=== PATIENT | male | born 1975 | race American Indian/Alaskan Native ===

== ENCOUNTER 2021-08-24 18:57 | Inpatient (IN) | payer SELFPAY ==
[2021-08-24 21:36] LABS: Basophils # (Auto) 0.1 K/mm3 (0.0-0.1); Basophils % (Auto) 1.2 % (0.0-1.8); Eosinophils # (Auto) 0.1 K/mm3 (0.0-0.4); Hematocrit 44.6 % (35.5-45.6); Hemoglobin 14.3 gm/dl (11.8-15.2); Lymphocytes # (Auto) 2.6 K/mm3 (1.2-5.4); Lymphocytes % (Auto) 49.1 % (13.4-35.0); Mean Corpuscular HGB Conc 32 % (32-34); Mean Corpuscular Volume 82 fl (84-94); Monocytes # (Auto) 0.5 K/mm3 (0.0-0.8); Monocytes % (Auto) 8.6 % (0.0-7.3); Platelet Count 261 K/mm3 (140-440); Red Blood Count 5.41 M/mm3 (3.65-5.03); Red Cell Distribution Width 15.2 % (13.2-15.2)
--- NOTE | 2021-08-24 21:36 | XRay Report ---
CHEST 2 VIEWS INDICATION / CLINICAL INFORMATION: chest pain. COMPARISON: None available. FINDINGS: SUPPORT DEVICES: None. HEART / MEDIASTINUM: Moderate cardiomegaly with pulmonary venous hypertension LUNGS / PLEURA: No significant pulmonary or pleural abnormality. No pneumothorax. ADDITIONAL FINDINGS: No significant additional findings. IMPRESSION: 1. Cardiomegaly with pulmonary venous hypertension. Signer Name: Reji Espinosa MD Signed: 08/24/2021 9:32 PM Workstation Name: [id number]
[2021-08-24 21:47] LABS: INR 0.95 (0.87-1.13); Partial Thromboplastin Time 29.9 Sec. (24.2-36.6)
[2021-08-24 22:00] LABS: Alanine Aminotransferase 98 units/L (7-56); Albumin 3.9 g/dL (3.9-5); BUN/Creatinine Ratio 12; Blood Urea Nitrogen 14 mg/dL (9-20); Calcium 9.1 mg/dL (8.4-10.2); Hemolysis Index 6
[2021-08-24] MEDS ORDERED: hydrALAZINE 100 MG TAB PO ONE (22:00)
[2021-08-24] MEDS ORDERED: POTASSIUM CHLORIDE ER 20 MEQ TAB PO ONE (22:21)
--- NOTE | 2021-08-24 23:19 | Emergency Department Report ---
ED General Adult HPI - General Chief complaint: High BP Stated complaint: HIGH BP PUI?: No Source: patient Mode of arrival: Ambulatory Limitations: No Limitations - History of Present Illness Initial comments: Patient is a 45-year-old -[place] male with no past medical history, and who does not go to hospitals presents to the ED with acute onset persistent generalized weakness and fatigue and significantly elevated blood pressure for the last 2 days. Patient states that he has never been on blood pressure medications and this is the first time he told that his blood pressure was elevated. Patient denies chest pain, shortness of breath, dizziness, syncope, headache, change in vision, abdominal pain, diaphoresis, nausea, vomiting, neck pain, back pain, fever and chills or cough. MD Complaint: Elevated blood pressure, generalized weakness -: Sudden, days(s) (2) Location: head, chest Severity scale (0 -10): 2 Quality: dull Consistency: constant Improves with: none Worsens with: movement Associated Symptoms: denies other symptoms, malaise, weakness. denies: confusion, chest pain, cough, diaphoresis, fever/chills, headaches, loss of appetite, nausea/vomiting, rash, seizure, shortness of breath, syncope Treatments Prior to Arrival: none - Related Data Allergies Allergy/AdvReac Type Severity Reaction Status Date / Time No Known Allergies Allergy Verified 08/24/21 21:05 ED Review of Systems ROS: Stated complaint: HIGH BP Other details as noted in HPI Constitutional: malaise, weakness. denies: chills, fever Eyes: other. denies: eye pain, eye discharge, vision change ENT: denies: ear pain, throat pain Respiratory: denies: cough, shortness of breath, wheezing Cardiovascular: other (Elevated blood pressure). denies: chest pain, palpitations Endocrine: no symptoms reported Gastrointestinal: denies: abdominal pain, nausea, vomiting, diarrhea Genitourinary: denies: urgency, dysuria Musculoskeletal: denies: back pain, joint swelling, arthralgia Skin: denies: rash, lesions Neurological: denies: headache, weakness, paresthesias Psychiatric: denies: anxiety, depression Hematological/Lymphatic: denies: easy bleeding, easy bruising ED Past Medical Hx - Past Medical History Previous Medical History?: Yes Hx Hypertension: Yes - Surgical History Past Surgical History?: No ED Physical Exam - General Limitations: No Limitations General appearance: alert, in no apparent distress, other (Hypertensive, afebrile) - Head Head exam: Present: atraumatic, normocephalic - Eye Eye exam: Present: normal appearance, PERRL, EOMI. Absent: scleral icterus, conjunctival injection, nystagmus, periorbital swelling, periorbital tenderness Pupils: Present: normal accommodation - ENT ENT exam: Present: normal exam, normal orophraynx, mucous membranes moist, TM's normal bilaterally, normal external ear exam - Neck Neck exam: Present: normal inspection, full ROM - Respiratory Respiratory exam: Present: normal lung sounds bilaterally. Absent: respiratory distress, wheezes, rhonchi, stridor, chest wall tenderness, accessory muscle use, decreased breath sounds - Cardiovascular Cardiovascular Exam: Present: regular rate, normal rhythm, normal heart sounds. Absent: systolic murmur, diastolic murmur, rubs, gallop - GI/Abdominal GI/Abdominal exam: Present: soft, normal bowel sounds. Absent: tenderness, guarding, rebound, hyperactive bowel sounds, hypoactive bowel sounds, organomegaly - Extremities Exam Extremities exam: Present: normal inspection, full ROM, normal capillary refill - Back Exam Back exam: Present: normal inspection, full ROM. Absent: tenderness, CVA tenderness (R), CVA tenderness (L), muscle spasm, vertebral tenderness - Neurological Exam Neurological exam: Present: alert, oriented X3, CN II-XII intact, normal gait, reflexes normal - Psychiatric Psychiatric exam: Present: normal affect, normal mood - Skin Skin exam: Present: warm, dry, intact, normal color. Absent: rash ED Course Vital Signs 08/24/21 08/25/21 08/25/21 19:01 01:04 03:34 Temperature 98.8 F 98.8 F Pulse Rate 55 L 51 L 98 H Respiratory 18 16 16 Rate Blood Pressure Blood Pressure 210/168 131/101 144/95 [Left] O2 Sat by Pulse 98 98 98 Oximetry 08/25/21 05:00 Temperature Pulse Rate 84 Respiratory 23 Rate Blood Pressure 152/96 Blood Pressure [Left] O2 Sat by Pulse 96 Oximetry ED Medical Decision Making - Lab Data Result diagrams: 08/24/21 21:11 08/24/21 21:11 - Radiology Data Radiology results: report reviewed, image reviewed [facility] [address] [place] [address] XRay Report Signed Patient: IMANI WU MR#: [id number] : 1975 Acct:[id number] Age/Sex: 45 / M ADM Date: 08/24/21 Loc: ED Attending Dr: Ordering Physician: DANE THOMAS Date of Service: 08/24/21 Procedure(s): XR chest routine 2V Accession Number(s): [id number] cc: DANE THOMAS Fluoro Time In Minutes: CHEST 2 VIEWS INDICATION / CLINICAL INFORMATION: chest pain. COMPARISON: None available. FINDINGS: SUPPORT DEVICES: None. HEART / MEDIASTINUM: Moderate cardiomegaly with pulmonary venous hypertension LUNGS / PLEURA: No significant pulmonary or pleural abnormality. No pneumothorax. ADDITIONAL FINDINGS: No significant additional findings. IMPRESSION: 1. Cardiomegaly with pulmonary venous hypertension. Signer Name: Reji Espinosa MD Signed: 08/24/2021 9:32 PM Workstation Name: [id number] Transcribed By: TL Dictated By: Reji Espinosa MD Electronically Authenticated By: Reji Espinosa MD Signed Date/Time: 08/24/212131 DD/ 31 TD/TT: - Medical Decision Making This is a 45-year-old -[place] male with no past medical history, and who does not go to hospitals presents to the ED with acute onset persistent generalized weakness and fatigue and significantly elevated blood pressure for the last 2 days. Patient states that he has never been on blood pressure medications and this is the first time he told that his blood pressure was elevated. In the ED, patient is alert and oriented x3 and is not in any distress. Patient is however hypertensive but afebrile. Patient's heart score is 2, and is PERC negative per Wells criteria. Patient was treated in the ED with aspirin and also given hydralazine 50 mg p.o. x1 for hypertensive emergency. Lab test results were reviewed and showed elevated troponin of 0.034. Chest x-ray showed cardiomegaly with pulmonary venous hypertension. Patient case was discussed with the hospitalist physician Dr. Hunter who admitted the patient to the hospital for observation on N-STEMI diagnosis. - Differential Diagnosis ACS; pneumonia; CHF; PE; dissection; acute renal failure Critical care attestation.: If time is entered above; I have spent that time in minutes in the direct care of this critically ill patient, excluding procedure time. ED Disposition Clinical Impression: Weakness generalized, Hypertensive emergency, NSTEMI (non-ST elevated myocardial infarction), Acute hypokalemia Disposition: 02 SHORT TERM HOSPITAL Is pt being admited?: Yes Does the pt Need Aspirin: Yes Condition: Stable Time of Disposition: 23:20
[2021-08-24] MEDS ORDERED: ONDANSETRON 4 MG/2 ML INJ IV PRN (23:21)
[2021-08-24] MEDS ORDERED: ACETAMINOPHEN 325 MG TAB PO PRN ×2 (23:21→23:51)
[2021-08-24] MEDS ORDERED: NITROGLYCERIN 0.4 MG TAB SUBL SL PRN (23:51)
[2021-08-24] MEDS ORDERED: MORPHINE 2 MG/1 ML INJ IV PRN (23:51)
[2021-08-24] MEDS ORDERED: traMADol 50 MG TAB PO PRN (23:51)
[2021-08-24] MEDS ORDERED: hydrALAZINE 20 MG/1 ML INJ IV PRN (23:53)
--- NOTE | 2021-08-24 23:59 | History and Physical Report ---
History of Present Illness Date of examination: 08/24/21 Date of admission: 08/24/21 Chief complaint: Generalized weakness High blood pressure History of present illness: 5-year-old -[place] male with no past medical history was brought to the emergency room because of acute onset persistent generalized weakness and fatigue and significantly elevated blood pressure for the last 2 days. Patient states that he has never been on blood pressure medications and this is the first time he told that his blood pressure was elevated. Patient denies chest pain, shortness of breath, dizziness, syncope, headache, change in vision, abdominal pain, diaphoresis, nausea, vomiting, neck pain, back pain, fever and chills or cough. In the emergency room patient troponin is elevated, troponin is 0.034. Patient denied any chest pain or shortness of breath. Patient blood pressure is elevated 210/168.Chest x-ray showed mild cardiomegaly med rec is not available Medications and Allergies Allergies Allergy/AdvReac Type Severity Reaction Status Date / Time No Known Allergies Allergy Verified 08/24/21 21:05 Active Meds: Active Medications Acetaminophen (Acetaminophen 325 Mg Tab) 650 mg PO Q4H PRN PRN Reason: Pain MILD(1-3)/Fever >100.5/VILLASEÑOR Acetaminophen (Acetaminophen 325 Mg Tab) 650 mg PO Q6H PRN PRN Reason: Pain, Mild (1-3) Aspirin (Aspirin 325 Mg Tab) 325 mg PO QDAY [facility] Aspirin (Aspirin 81 Mg Tab Chew) 81 mg PO QDAY [facility] Atorvastatin Calcium (Atorvastatin 40 Mg Tab) 40 mg PO QHS [facility] Heparin Sodium (Porcine) (Heparin 5,000 Unit/1 Ml Vial) 5,000 unit SUB-Q Q8HR [facility] Hydralazine HCl (Hydralazine 20 Mg/1 Ml Inj) 10 mg IV Q6H PRN PRN Reason: Blood Pressure Morphine Sulfate (Morphine 4 Mg/1 Ml Inj) 2 mg IV Q5MIN PRN PRN Reason: Chest Pain unrelieved by NTG Nitroglycerin (Nitroglycerin 0.4 Mg Tab Subl) 0.4 mg SL Q5M PRN PRN Reason: Chest Pain Ondansetron HCl (Ondansetron 4 Mg/2 Ml Inj) 4 mg IV Q8H PRN PRN Reason: Nausea And Vomiting Pantoprazole Sodium (Pantoprazole 40 Mg Tab) 40 mg PO QDAY [facility] Sodium Chloride (Sodium Chloride 0.9% 10 Ml Flush Syringe) 10 ml IV BID JULISSA Sodium Chloride (Sodium Chloride 0.9% 10 Ml Flush Syringe) 10 ml IV PRN PRN PRN Reason: LINE FLUSH Sodium Chloride (Sodium Chloride 0.9% 10 Ml Flush Syringe) 10 ml IV PRN PRN PRN Reason: LINE FLUSH Tramadol HCl (Tramadol 50 Mg Tab) 50 mg PO Q6H PRN PRN Reason: Pain, Moderate (4-6) Review of Systems All systems: negative Constitutional: fatigue, weakness Exam - Constitutional Vitals: Temp Pulse Resp BP Pulse Ox 98.8 F 55 L 18 210/168 98 08/24/21 19:01 08/24/21 19:01 08/24/21 19:01 08/24/21 19:01 08/24/21 19:01 General appearance: Present: no acute distress, well-nourished - EENT Eyes: Present: PERRL ENT: hearing intact, clear oral mucosa - Neck Neck: Present: supple, normal ROM - Respiratory Respiratory effort: normal Respiratory: bilateral: CTA - Cardiovascular Heart Sounds: Present: S1 & S2. Absent: rub, click - Extremities Extremities: pulses symmetrical, No edema Peripheral Pulses: within normal limits - Abdominal General gastrointestinal: Present: soft, non-tender, non-distended, normal bowel sounds Male genitourinary: Present: normal - Integumentary Integumentary: Present: clear, warm, dry - Musculoskeletal Musculoskeletal: gait normal, strength equal bilaterally - Psychiatric Psychiatric: appropriate mood/affect, intact judgment & insight - Neurologic Neurologic: CNII-XII intact, moves all extremities HEART Score - HEART Score Troponin: Troponin T 0.034 ng/mL (0.00-0.029) H 08/24/21 21:11 Results - Labs CBC & Chem 7: 08/24/21 21:11 08/24/21 21:11 Labs: Laboratory Last Values WBC 5.3 K/mm3 (4.5-11.0) 08/24/21 21:11 RBC 5.41 M/mm3 (3.65-5.03) H 08/24/21 21:11 Hgb 14.3 gm/dl (11.8-15.2) 08/24/21 21:11 Hct 44.6 % (35.5-45.6) 08/24/21 21:11 MCV 82 fl (84-94) L 08/24/21 21:11 MCH 26 pg (28-32) L 08/24/21 21:11 MCHC 32 % (32-34) 08/24/21 21:11 RDW 15.2 % (13.2-15.2) 08/24/21 21:11 Plt Count 261 K/mm3 (140-440) 08/24/21 21:11 Lymph % (Auto) 49.1 % (13.4-35.0) H 08/24/21 21:11 [place] % (Auto) 8.6 % (0.0-7.3) H 08/24/21 21:11 Eos % (Auto) 1.0 % (0.0-4.3) 08/24/21 21:11 Baso % (Auto) 1.2 % (0.0-1.8) 08/24/21 21:11 Lymph # (Auto) 2.6 K/mm3 (1.2-5.4) 08/24/21 21:11 [place] # (Auto) 0.5 K/mm3 (0.0-0.8) 08/24/21 21:11 Eos # (Auto) 0.1 K/mm3 (0.0-0.4) 08/24/21 21:11 Baso # (Auto) 0.1 K/mm3 (0.0-0.1) 08/24/21 21:11 Seg Neutrophils % 40.1 % (40.0-70.0) 08/24/21 21:11 Seg Neutrophils # 2.1 K/mm3 (1.8-7.7) 08/24/21 21:11 PT 13.7 Sec. (12.2-14.9) 08/24/21 21:11 INR 0.95 (0.87-1.13) 08/24/21 21:11 APTT 29.9 Sec. (24.2-36.6) 08/24/21 21:11 Sodium 142 mmol/L (137-145) 08/24/21 21:11 Potassium 3.2 mmol/L (3.6-5.0) L 08/24/21 21:11 Chloride 100.8 mmol/L (98-107) 08/24/21 21:11 Carbon Dioxide 28 mmol/L (22-30) 08/24/21 21:11 Anion Gap 16 mmol/L 08/24/21 21:11 BUN 14 mg/dL (9-20) 08/24/21 21:11 Creatinine 1.2 mg/dL (0.8-1.3) 08/24/21 21:11 Estimated GFR > 60 ml/min 08/24/21 21:11 BUN/Creatinine Ratio 12 % 08/24/21 21:11 Glucose 91 mg/dL (75-100) 08/24/21 21:11 Calcium 9.1 mg/dL (8.4-10.2) 08/24/21 21:11 Total Bilirubin 0.80 mg/dL (0.1-1.2) 08/24/21 21:11 AST 95 units/L (5-40) H 08/24/21 21:11 ALT 98 units/L (7-56) H 08/24/21 21:11 Alkaline Phosphatase 100 units/L (35-129) 08/24/21 21:11 Troponin T 0.034 ng/mL (0.00-0.029) H 08/24/21 21:11 Total Protein 6.8 g/dL (6.3-8.2) 08/24/21 21:11 Albumin 3.9 g/dL (3.9-5) 08/24/21 21:11 Albumin/Globulin Ratio 1.3 % 08/24/21 21:11 - Imaging and Cardiology Chest x-ray: report reviewed Assessment and Plan VTE prophylaxis?: Chemical Plan of care discussed with patient/family: Yes - Patient Problems (1) NSTEMI (non-ST elevated myocardial infarction) Status: Acute Plan to address problem: Admit the patient to the medical telemetry. Aspirin 81 mg p.o. daily. Lipitor 40 mg p.o. daily. We will do the serial cardiac enzymes. Echocardiogram. Cardiology consult. (2) Hypertensive emergency Status: Acute Plan to address problem: Lisinopril 20 mg p.o. daily. Hydralazine 10 mg IV every 6 hours as needed. We will monitor the blood pressure closely. Echocardiogram. Cardiology consult (3) Weakness generalized Status: Acute Plan to address problem: Multivitamin 1 tablet p.o. daily. We will continue the home medication (4) DVT prophylaxis Status: Acute Plan to address problem: Heparin 5000 units subcu every 8 hours for DVT prophylaxis. Protonix 40 mg p.o. daily for GI prophylaxis. Patient is a full code
[2021-08-25] MEDS ORDERED: LISINOPRIL 20 MG TAB PO ONE (00:30)
[2021-08-25] MEDS ORDERED: MULTIVITAMINS ,THERAPEUTIC TAB PO ONE (00:45)
[2021-08-25 02:51] LABS: Chol/HDL Ratio 3.76 %; HDL Cholesterol 42 mg/dL (40-59); LDL Cholesterol,Direct 88 mg/dL (50-130)
[2021-08-25] MEDS: HEPARIN 5,000 UNIT/1 ML VIAL SUB-Q SCH ×3 (06:03→22:13)
[2021-08-25 06:09] LABS: Basophils % (Auto) 0.5 % (0.0-1.8); Hematocrit 41.2 % (35.5-45.6); Hemoglobin 13.3 gm/dl (11.8-15.2); Lymphocytes # (Auto) 1.6 K/mm3 (1.2-5.4); Lymphocytes % (Auto) 28.8 % (13.4-35.0); Mean Corpuscular HGB Conc 32 % (32-34); Mean Corpuscular Volume 82 fl (84-94); Monocytes # (Auto) 0.3 K/mm3 (0.0-0.8); Monocytes % (Auto) 6.2 % (0.0-7.3); Platelet Count 241 K/mm3 (140-440); Red Blood Count 5.01 M/mm3 (3.65-5.03); Red Cell Distribution Width 14.9 % (13.2-15.2)
[2021-08-25 06:23] LABS: BUN/Creatinine Ratio 11; Blood Urea Nitrogen 12 mg/dL (9-20); Calcium 8.9 mg/dL (8.4-10.2); Hemolysis Index 8
[2021-08-25] MEDS ORDERED: POTASSIUM CHLORIDE ER 20 MEQ TAB PO NR (09:00)
[2021-08-25] MEDS ORDERED: PANTOPRAZOLE 40 MG TAB PO SCH (10:00)
[2021-08-25] MEDS ORDERED: ASPIRIN 325 MG TAB PO SCH (10:00)
[2021-08-25] MEDS ORDERED: LISINOPRIL 20 MG TAB PO SCH (10:00)
[2021-08-25] MEDS ORDERED: SODIUM CHLORIDE 0.9% 1000 ML 1,000 ML ONE (10:11)
[2021-08-25] MEDS: ASPIRIN 81 MG TAB CHEW PO SCH (10:17)
[2021-08-25] MEDS: POTASSIUM CHLORIDE 10 MEQ 10 MEQ/100 ML BAG IV SCH ×2 (10:18→11:56)
--- NOTE | 2021-08-25 13:06 | Consultation ---
History of Present Illness Consult date: 08/25/21 Consult reason: shortness of breath History of present illness: The patient is a 45-year-old man who presented to the emergency room with 2 weeks of shortness of breath and fatigue. He was initially evaluated in urgent care center where they noted he was markedly hypertensive, promptly referred to the emergency room. In the ER his blood pressure was 210/168. The patient reports a history of hypertension dating back to at least 7 years ago. He apparently has not reported for medical evaluation, and states that he has been in the [place] for 4 years and has not seen a doctor until the urgent care visit yesterday. He has no chest pain, no palpitations or edema. Further evaluation so far in the hospital, a chest x-ray done shows a moderate to severe cardiomegaly, with mild interstitial edema. I do not see an ECG in the patient's chart for review. There is a nonspecific borderline troponin level. An echocardiogram done today confirms a four-chamber dilated cardiomyopathy, with left ventricular ejection fraction 20 to 25%. The patient still in the emergency room, states that he feels much better after initial emergency room treatment. Past History Past Medical History: hypertension Medications and Allergies Allergies Allergy/AdvReac Type Severity Reaction Status Date / Time No Known Allergies Allergy Verified 08/24/21 21:05 Home Medications Medication Instructions Recorded Confirmed Last Taken Type No Known Home Medications [No 08/25/21 08/25/21 Unknown History Reported Home Medications] Active Meds: Active Medications Acetaminophen (Acetaminophen 325 Mg Tab) 650 mg PO Q6H PRN PRN Reason: Pain, Mild (1-3) Aspirin (Aspirin 81 Mg Tab Chew) 81 mg PO QDAY [facility] Last Admin: 08/25/21 10:17 Dose: 81 mg Documented by: Atorvastatin Calcium (Atorvastatin 40 Mg Tab) 40 mg PO QHS [facility] Heparin Sodium (Porcine) (Heparin 5,000 Unit/1 Ml Vial) 5,000 unit SUB-Q Q8HR [facility] Last Admin: 08/25/21 06:03 Dose: 5,000 unit Documented by: Hydralazine HCl (Hydralazine 20 Mg/1 Ml Inj) 10 mg IV Q6H PRN PRN Reason: Blood Pressure Last Admin: 08/25/21 12:47 Dose: 10 mg Documented by: Lisinopril (Lisinopril 20 Mg Tab) 20 mg PO QDAY [facility] Last Admin: 08/25/21 10:18 Dose: 20 mg Documented by: Morphine Sulfate (Morphine 2 Mg/1 Ml Inj) 2 mg IV Q5MIN PRN PRN Reason: Chest Pain unrelieved by NTG Nitroglycerin (Nitroglycerin 0.4 Mg Tab Subl) 0.4 mg SL Q5M PRN PRN Reason: Chest Pain Ondansetron HCl (Ondansetron 4 Mg/2 Ml Inj) 4 mg IV Q8H PRN PRN Reason: Nausea And Vomiting Pantoprazole Sodium (Pantoprazole 40 Mg Tab) 40 mg PO QDAY [facility] Last Admin: 08/25/21 10:17 Dose: 40 mg Documented by: Sodium Chloride (Sodium Chloride 0.9% 10 Ml Flush Syringe) 10 ml IV BID [facility] Last Admin: 08/25/21 10:19 Dose: 10 ml Documented by: Sodium Chloride (Sodium Chloride 0.9% 10 Ml Flush Syringe) 10 ml IV PRN PRN PRN Reason: LINE FLUSH Tramadol HCl (Tramadol 50 Mg Tab) 50 mg PO Q6H PRN PRN Reason: Pain, Moderate (4-6) Review of Systems Cardiovascular: orthopnea, shortness of breath, dyspnea on exertion, other (Fatigue), no chest pain, no palpitations, no rapid/irregular heart beat, no edema, no syncope, no lightheadedness Physical Examination Vital Signs Temp Pulse Resp BP Pulse Ox 98.8 F 55 L 18 210/168 98 08/24/21 19:01 08/24/21 19:01 08/24/21 19:01 08/24/21 19:01 08/24/21 19:01 General appearance: no acute distress HEENT: Positive: PERRL Neck: Positive: neck supple Cardiac: Positive: Reg Rate and Rhythm Lungs: Positive: Decreased Breath Sounds Neuro: Positive: Grossly Intact Abdomen: Positive: Soft Male genitourinary: Positive: deferred Skin: Positive: Clear Extremities: Absent: edema Results 08/25/21 05:58 08/25/21 05:58 Cardiac Enzymes 08/24/21 Range/Units 21:11 AST 95 H (5-40) units/L Coagulation 08/24/21 Range/Units 21:11 PT 13.7 (12.2-14.9) Sec. INR 0.95 (0.87-1.13) APTT 29.9 (24.2-36.6) Sec. Lipids 08/24/21 Range/Units 21:11 Triglycerides 123 (2-149) mg/dL Cholesterol 158 (50-199) mg/dL HDL Cholesterol 42 (40-59) mg/dL Cholesterol/HDL Ratio 3.76 % CBC 08/24/21 08/25/21 Range/Units 21:11 05:58 WBC 5.3 5.5 (4.5-11.0) K/mm3 RBC 5.41 H 5.01 (3.65-5.03) M/mm3 Hgb 14.3 13.3 (11.8-15.2) gm/dl Hct 44.6 41.2 (35.5-45.6) % Plt Count 261 241 (140-440) K/mm3 Lymph # (Auto) 2.6 1.6 (1.2-5.4) K/mm3 [place] # (Auto) 0.5 0.3 (0.0-0.8) K/mm3 Eos # (Auto) 0.1 0.0 (0.0-0.4) K/mm3 Baso # (Auto) 0.1 0.0 (0.0-0.1) K/mm3 Comprehensive Metabolic Panel 08/24/21 08/25/21 Range/Units 21:11 05:58 Sodium 142 145 (137-145) mmol/L Potassium 3.2 L 3.2 L (3.6-5.0) mmol/L Chloride 100.8 107.2 H (98-107) mmol/L Carbon Dioxide 28 27 (22-30) mmol/L BUN 14 12 (9-20) mg/dL Creatinine 1.2 1.1 (0.8-1.3) mg/dL Glucose 91 99 (75-100) mg/dL Calcium 9.1 8.9 (8.4-10.2) mg/dL AST 95 H (5-40) units/L ALT 98 H (7-56) units/L Alkaline Phosphatase 100 (35-129) units/L Total Protein 6.8 (6.3-8.2) g/dL Albumin 3.9 (3.9-5) g/dL EKG interpretations - Telemetry EKG Rhythm: Sinus Rhythm Assessment and Plan - Patient Problems (1) Acute systolic (congestive) heart failure Current Visit: Yes Status: Acute Plan to address problem: Patient presented with symptoms of fluid overload and systolic heart failure over a 2-week period. There is massive cardiomegaly on the chest x-ray, and echocardiogram shows four-chamber dilated cardiomyopathy, ejection fraction 20 to 25%. The systolic heart failure is a new diagnosis. Etiology is uncertain, but patient has longstanding uncontrolled hypertension for which he was noncompliant with medical management. We will treat with diuretics, afterload agents, beta-blockers, spironolactone and baby aspirin. Further cardiac evaluation will depend on clinical course. (2) Uncontrolled hypertension Current Visit: Yes Status: Acute Plan to address problem: Patient admits to a history of hypertension dating back to 7 years, but has never presented for medical assessment and management, on this presentation the blood pressure was 210/168. We will make recommendations for aggressive management of hypertension.
--- NOTE | 2021-08-25 13:26 | Event Note ---
Date: 08/25/21 Patient apparently did not have an ECG performed on presentation, I will order a twelve-lead ECG at this time.
[2021-08-25] MEDS: NIFEdipine XL 60 MG TAB PO SCH (15:36)
[2021-08-25] MEDS: FUROSEMIDE 40 MG/4 ML INJ IV SCH (15:36)
[2021-08-25] MEDS: carvediloL 6.25 MG TAB PO SCH ×2 (15:36→22:13)
[2021-08-25] MEDS: LISINOPRIL 40 MG TAB PO SCH (15:36)
[2021-08-25] MEDS: SPIRONOLACTONE 25 MG TAB PO SCH (15:37)
--- NOTE | 2021-08-25 17:38 | Progress Note ---
Assessment and Plan Assessment and plan: Patient is a 45-year-old male with past medical history of hypertension (nonadherent with medications) who presented with acute onset generalized weakness, fatigue, and significantly elevated blood pressures for approximately 48 hours was found to be secondary to hypertensive emergency complicated by NSTEMI in the setting of acute systolic heart failure. #Hypertensive emergency #NSTEMI #Acute systolic heart failure #Moderate pulmonary hypertension -Status post ASA 325 mg in ED -Troponin 0.034 -->0.022 -Cardiology consulted; appreciate recs -TTE revealing EF 25-30% LV is moderately dilated and LV systolic function is severely decreased with moderate concentric LV hypertrophy. Right ventricle is mild to moderately dilated, and right ventricle is mildly hypokinetic. Left atrium is severely dilated, and right atrium is moderately dilated. There is mild to moderate tricuspid regurg with moderate to severe pulmonary hypertension. The RVSP is 55-60 mmHg. -Starting the following for medical management: ASA 81 mg daily, Lipitor 40 mg daily, Coreg 6.25 mg twice daily, IV Lasix 40 mg daily, lisinopril 40 mg daily, nifedipine 60 mg daily, spironolactone 25 mg daily -Consulting pulmonology for new pulmonary hypertension diagnosis; recs pending -Continue strict I's and O's, daily weights, fluid restriction, and cardiac diet. #Dietary counseling #Exercise counseling #Medication compliance counseling -Counseled patient about importance of decreasing salt intake, incorporating fresh fruits, vegetables, and exercise as tolerated. Patient expressed understanding -Time: +15 minutes #Advanced care planning -Disease education conducted, care plan discussed, diagnoses discussed, prognosis discussed, and patient acknowledges understanding with care plan -Time: +30 minutes Disposition Plan: Continue medical management Total Time Spent with Patient (Minutes): 45 minutes History Interval history: No acute events overnight. Hospitalist Physical - Constitutional Vitals: Temp Pulse Resp BP Pulse Ox 98.8 F 103 H 14 177/120 97 08/25/21 03:34 08/25/21 12:47 08/25/21 12:00 08/25/21 12:47 08/25/21 12:00 General appearance: Present: no acute distress, well-nourished - EENT Eyes: Present: PERRL, EOM intact ENT: hearing intact, clear oral mucosa, dentition normal - Neck Neck: Present: supple, normal ROM - Respiratory Respiratory effort: normal Respiratory: bilateral: diminished - Cardiovascular Rhythm: regular Heart Sounds: Present: S1 & S2 - Extremities Extremities: no ischemia, pulses intact, pulses symmetrical, No edema, normal temperature Peripheral Pulses: within normal limits - Abdominal General gastrointestinal: soft, non-tender, non-distended, normal bowel sounds - Integumentary Integumentary: Present: clear, warm, dry - Psychiatric Psychiatric: appropriate mood/affect, intact judgment & insight, memory intact, cooperative - Neurologic Neurologic: CNII-XII intact, moves all extremities - Allied Health Allied health notes reviewed: nursing HEART Score - HEART Score Troponin: Troponin T 0.022 ng/mL (0.00-0.029) 08/25/21 05:51 Results - Labs CBC & Chem 7: 08/25/21 05:58 08/25/21 05:58 Labs: Laboratory Last Values WBC 5.5 K/mm3 (4.5-11.0) 08/25/21 05:58 RBC 5.01 M/mm3 (3.65-5.03) 08/25/21 05:58 Hgb 13.3 gm/dl (11.8-15.2) 08/25/21 05:58 Hct 41.2 % (35.5-45.6) 08/25/21 05:58 MCV 82 fl (84-94) L 08/25/21 05:58 MCH 27 pg (28-32) L 08/25/21 05:58 MCHC 32 % (32-34) 08/25/21 05:58 RDW 14.9 % (13.2-15.2) 08/25/21 05:58 Plt Count 241 K/mm3 (140-440) 08/25/21 05:58 Lymph % (Auto) 28.8 % (13.4-35.0) 08/25/21 05:58 [place] % (Auto) 6.2 % (0.0-7.3) 08/25/21 05:58 Eos % (Auto) 0.0 % (0.0-4.3) 08/25/21 05:58 Baso % (Auto) 0.5 % (0.0-1.8) 08/25/21 05:58 Lymph # (Auto) 1.6 K/mm3 (1.2-5.4) 08/25/21 05:58 [place] # (Auto) 0.3 K/mm3 (0.0-0.8) 08/25/21 05:58 Eos # (Auto) 0.0 K/mm3 (0.0-0.4) 08/25/21 05:58 Baso # (Auto) 0.0 K/mm3 (0.0-0.1) 08/25/21 05:58 Seg Neutrophils % 64.5 % (40.0-70.0) 08/25/21 05:58 Seg Neutrophils # 3.6 K/mm3 (1.8-7.7) 08/25/21 05:58 PT 13.7 Sec. (12.2-14.9) 08/24/21 21:11 INR 0.95 (0.87-1.13) 08/24/21 21:11 APTT 29.9 Sec. (24.2-36.6) 08/24/21 21:11 Sodium 145 mmol/L (137-145) 08/25/21 05:58 Potassium 3.2 mmol/L (3.6-5.0) L 08/25/21 05:58 Chloride 107.2 mmol/L (98-107) H 08/25/21 05:58 Carbon Dioxide 27 mmol/L (22-30) 08/25/21 05:58 Anion Gap 14 mmol/L 08/25/21 05:58 BUN 12 mg/dL (9-20) 08/25/21 05:58 Creatinine 1.1 mg/dL (0.8-1.3) 08/25/21 05:58 Estimated GFR > 60 ml/min 08/25/21 05:58 BUN/Creatinine Ratio 11 % 08/25/21 05:58 Glucose 99 mg/dL (75-100) 08/25/21 05:58 Calcium 8.9 mg/dL (8.4-10.2) 08/25/21 05:58 Total Bilirubin 0.80 mg/dL (0.1-1.2) 08/24/21 21:11 AST 95 units/L (5-40) H 08/24/21 21:11 ALT 98 units/L (7-56) H 08/24/21 21:11 Alkaline Phosphatase 100 units/L (35-129) 08/24/21 21:11 Troponin T 0.022 ng/mL (0.00-0.029) 08/25/21 05:51 Total Protein 6.8 g/dL (6.3-8.2) 08/24/21 21:11 Albumin 3.9 g/dL (3.9-5) 08/24/21 21:11 Albumin/Globulin Ratio 1.3 % 08/24/21 21:11 Triglycerides 123 mg/dL (2-149) 08/24/21 21:11 Cholesterol 158 mg/dL (50-199) 08/24/21 21:11 LDL Cholesterol Direct 88 mg/dL (50-130) 08/24/21 21:11 HDL Cholesterol 42 mg/dL (40-59) 08/24/21 21:11 Cholesterol/HDL Ratio 3.76 % 08/24/21 21:11 Active Medications - Current Medications Current Medications: Generic Name Dose Route Start Last Admin Trade Name Freq PRN Reason Stop Dose Admin Acetaminophen 650 mg 08/24/21 23:51 Acetaminophen 325 Mg Tab PO Q6H PRN Pain, Mild (1-3) Aspirin 81 mg 08/25/21 10:00 08/25/21 10:17 Aspirin 81 Mg Tab Chew PO 81 mg QDAY JULISSA Administration Atorvastatin Calcium 40 mg 08/25/21 22:00 Atorvastatin 40 Mg Tab PO QHS JULISSA Carvedilol 6.25 mg 08/25/21 14:00 08/25/21 15:36 Carvedilol 6.25 Mg Tab PO 6.25 mg BID JULISSA Administration Furosemide 40 mg 08/25/21 14:00 08/25/21 15:36 Furosemide 40 Mg/4 Ml Inj IV 40 mg QDAY JULISSA Administration Heparin Sodium (Porcine) 5,000 unit 08/25/21 06:00 08/25/21 15:36 Heparin 5,000 Unit/1 Ml Vial SUB-Q 5,000 unit Q8HR JULISSA Administration Hydralazine HCl 10 mg 08/24/21 23:53 08/25/21 12:47 Hydralazine 20 Mg/1 Ml Inj IV 10 mg Q6H PRN Administration Blood Pressure Lisinopril 40 mg 08/25/21 14:00 08/25/21 15:36 Lisinopril 40 Mg Tab PO 40 mg QDAY JULISSA Administration Morphine Sulfate 2 mg 08/24/21 23:51 Morphine 2 Mg/1 Ml Inj IV Q5MIN PRN Chest Pain unrelieved by NTG Nifedipine 60 mg 08/25/21 14:00 08/25/21 15:36 Nifedipine Xl 60 Mg Tab PO 60 mg QDAY JULISSA Administration Nitroglycerin 0.4 mg 08/24/21 23:51 Nitroglycerin 0.4 Mg Tab Subl SL Q5M PRN Chest Pain Ondansetron HCl 4 mg 08/24/21 23:21 Ondansetron 4 Mg/2 Ml Inj IV Q8H PRN Nausea And Vomiting Sodium Chloride 10 ml 08/24/21 23:45 08/25/21 10:19 Sodium Chloride 0.9% 10 Ml Flush Syringe IV 10 ml BID JULISSA Administration Sodium Chloride 10 ml 08/24/21 23:21 Sodium Chloride 0.9% 10 Ml Flush Syringe IV PRN PRN LINE FLUSH Spironolactone 25 mg 08/25/21 14:00 08/25/21 15:37 Spironolactone 25 Mg Tab PO 25 mg QDAY JULISSA Administration Tramadol HCl 50 mg 08/24/21 23:51 Tramadol 50 Mg Tab PO Q6H PRN Pain, Moderate (4-6)
[2021-08-26] MEDS: HEPARIN 5,000 UNIT/1 ML VIAL SUB-Q SCH ×3 (05:46→21:17)
[2021-08-26 06:03] LABS: BUN/Creatinine Ratio 13; Blood Urea Nitrogen 14 mg/dL (9-20); Calcium 9.2 mg/dL (8.4-10.2); Hemolysis Index 101
--- NOTE | 2021-08-26 07:54 | Progress Note ---
Assessment and Plan Acute systolic heart failure echo shows four-chamber dilated cardiomyopathy, ejection fraction 20-25%. Cardiomyopathy, uncertain etiology Longstanding uncontrolled hypertension Noncompliant with medical management Recommendations: Continue guideline directed medical therapy for systolic heart failure. Further cardiac evaluation will depend on clinical course. Subjective Date of service: 08/26/21 Interval history: Patient reports his breathing is better. BP has improved, systolic at 134. Objective Vital Signs Temp Pulse Resp BP Pulse Ox 08/26/21 04:50 98.4 F 80 18 134/100 96 08/25/21 23:00 126/83 08/25/21 22:50 145/93 98 08/25/21 22:49 145/93 08/25/21 22:13 84 143/106 08/25/21 20:47 99.8 F H 92 H 18 149/99 96 08/25/21 20:35 98 08/25/21 20:21 80 26 H 141/106 95 08/25/21 20:00 84 27 H 141/106 100 08/25/21 19:31 82 26 H 127/103 95 08/25/21 19:21 92 H 15 127/103 96 08/25/21 19:11 76 17 127/103 91 08/25/21 19:00 86 28 H 127/103 92 08/25/21 18:51 82 29 H 133/94 93 08/25/21 18:41 83 22 133/94 92 08/25/21 18:31 81 20 133/94 94 08/25/21 18:21 90 29 H 133/94 96 08/25/21 18:11 88 27 H 133/94 94 08/25/21 18:00 90 26 H 133/94 97 08/25/21 17:01 87 15 177/120 96 08/25/21 14:00 92 H 23 177/120 98 08/25/21 13:00 108 H 29 H 175/123 98 08/25/21 12:47 103 H 177/120 08/25/21 12:00 103 H 14 175/123 97 08/25/21 11:00 92 H 16 185/129 98 08/25/21 10:30 93 H 20 187/117 95 08/25/21 09:00 93 H 19 189/131 96 08/25/21 08:30 83 29 H 160/109 98 - Physical Examination General: No Apparent Distress HEENT: Positive: PERRL Neck: Positive: neck supple Cardiac: Positive: Reg Rate and Rhythm Lungs: Positive: Normal Breath Sounds Neuro: Positive: Grossly Intact Abdomen: Positive: Soft Skin: Positive: Clear Extremities: Absent: edema - Labs and Meds Comprehensive Metabolic Panel 08/26/21 Range/Units 04:16 Sodium 145 (137-145) mmol/L Potassium 3.7 (3.6-5.0) mmol/L Chloride 107.5 H (98-107) mmol/L Carbon Dioxide 23 (22-30) mmol/L BUN 14 (9-20) mg/dL Creatinine 1.1 (0.8-1.3) mg/dL Glucose 86 (75-100) mg/dL Calcium 9.2 (8.4-10.2) mg/dL
--- NOTE | 2021-08-26 08:41 | Electrocardiograph Report ---
[facility] Test Date: 2021-08-25 Test Time: 13:33:56 Pat Name: IMANI WU Department: Room: A460 Gender: M Head Sampler: NITA : 1975 Requested By: LISA KLEIN Order Number: [id number] Reading MD: Bernabe Tello Measurements Intervals [place] Rate: 99 P: 18 [place]: 164 QRS: -18 QRSD: 98 T: 91 QT: 358 QTc: 461 Interpretive Statements Sinus rhythm Left atrial enlargement LVH with secondary repolarization abnormality No previous ECG available for comparison Electronically Signed On 08-26-2021 8:41:04 EST by Bernabe Tello
[2021-08-26] MEDS: LISINOPRIL 40 MG TAB PO SCH (09:34)
[2021-08-26] MEDS: NIFEdipine XL 60 MG TAB PO SCH (09:34)
[2021-08-26] MEDS: FUROSEMIDE 40 MG/4 ML INJ IV SCH (09:34)
[2021-08-26] MEDS: SPIRONOLACTONE 25 MG TAB PO SCH (09:34)
[2021-08-26] MEDS: carvediloL 6.25 MG TAB PO SCH ×2 (09:34→21:16)
[2021-08-26] MEDS: ASPIRIN 81 MG TAB CHEW PO SCH (09:34)
[2021-08-26 10:08] LABS: Hematocrit 47.7 % (35.5-45.6); Hemoglobin 15.1 gm/dl (11.8-15.2); Mean Corpuscular HGB Conc 32 % (32-34); Mean Corpuscular Volume 84 fl (84-94); Platelet Count 301 K/mm3 (140-440); Red Blood Count 5.69 M/mm3 (3.65-5.03); Red Cell Distribution Width 15.1 % (13.2-15.2)
--- NOTE | 2021-08-26 14:24 | Progress Note ---
Assessment and Plan Assessment and plan: Patient is a 45-year-old male with past medical history of hypertension (nonadherent with medications) who presented with acute onset generalized weakness, fatigue, and significantly elevated blood pressures for approximately 48 hours was found to be secondary to hypertensive emergency complicated by NSTEMI in the setting of acute systolic heart failure. #Hypertensive emergency-resolved #NSTEMI-resolved #Acute systolic heart failure #Moderate pulmonary hypertension -Status post ASA 325 mg in ED -Troponin 0.034 -->0.022 -Cardiology consulted; appreciate recs -TTE revealing EF 25-30% LV is moderately dilated and LV systolic function is severely decreased with moderate concentric LV hypertrophy. Right ventricle is mild to moderately dilated, and right ventricle is mildly hypokinetic. Left atrium is severely dilated, and right atrium is moderately dilated. There is mild to moderate tricuspid regurg with moderate to severe pulmonary hypertension. The RVSP is 55-60 mmHg. -Starting the following for medical management: ASA 81 mg daily, Lipitor 40 mg daily, Coreg 6.25 mg twice daily, IV Lasix 40 mg daily, lisinopril 40 mg daily, nifedipine 60 mg daily, spironolactone 25 mg daily -Consulting pulmonology for new pulmonary hypertension diagnosis; recs pending -Pending stress test in the morning. N.p.o. at midnight -Continue strict I's and O's, daily weights, fluid restriction, and cardiac diet. #Dietary counseling #Exercise counseling #Medication compliance counseling -Counseled patient about importance of decreasing salt intake, incorporating fresh fruits, vegetables, and exercise as tolerated. Patient expressed understanding -Time: +15 minutes #Advanced care planning -Disease education conducted, care plan discussed, diagnoses discussed, prognosis discussed, and patient acknowledges understanding with care plan -Time: +30 minutes Disposition Plan: Continue medical management Total Time Spent with Patient (Minutes): 45 minutes History Interval history: No acute events over night. The patient denies fevers, chills, nausea, vomiting, abdominal pain, chest pain/pressure, shortness of breath, urinary symptoms, weakness, or confusion. Hospitalist Physical - Constitutional Vitals: Temp Pulse Resp BP Pulse Ox 98.3 F 83 19 144/105 98 08/26/21 12:00 08/26/21 12:00 08/26/21 12:00 08/26/21 12:00 08/26/21 12:00 General appearance: Present: no acute distress, well-nourished - EENT Eyes: Present: PERRL, EOM intact ENT: hearing intact, clear oral mucosa, dentition normal - Neck Neck: Present: supple, normal ROM - Respiratory Respiratory effort: normal Respiratory: bilateral: CTA - Cardiovascular Rhythm: regular Heart Sounds: Present: S1 & S2 - Extremities Extremities: no ischemia, pulses intact, pulses symmetrical, No edema, normal temperature, normal color Peripheral Pulses: within normal limits - Abdominal General gastrointestinal: soft, non-tender, non-distended, normal bowel sounds - Integumentary Integumentary: Present: clear, warm, dry - Psychiatric Psychiatric: appropriate mood/affect, intact judgment & insight, memory intact, cooperative - Neurologic Neurologic: CNII-XII intact, moves all extremities - Allied Health Allied health notes reviewed: nursing HEART Score - HEART Score Troponin: Troponin T 0.022 ng/mL (0.00-0.029) 08/25/21 05:51 Results - Labs CBC & Chem 7: 08/26/21 09:41 08/26/21 04:16 Labs: Laboratory Last Values WBC 4.0 K/mm3 (4.5-11.0) L 08/26/21 09:41 RBC 5.69 M/mm3 (3.65-5.03) H 08/26/21 09:41 Hgb 15.1 gm/dl (11.8-15.2) 08/26/21 09:41 Hct 47.7 % (35.5-45.6) H D 08/26/21 09:41 MCV 84 fl (84-94) 08/26/21 09:41 MCH 27 pg (28-32) L 08/26/21 09:41 MCHC 32 % (32-34) 08/26/21 09:41 RDW 15.1 % (13.2-15.2) 08/26/21 09:41 Plt Count 301 K/mm3 (140-440) 08/26/21 09:41 Lymph % (Auto) [place] Blancher 08/26/21 09:41 [place] % (Auto) Almond Blancher 08/26/21 09:41 Eos % (Auto) [place] Blancher 08/26/21 09:41 Baso % (Auto) [place] Blancher 08/26/21 09:41 Lymph # (Auto) [place] Blancher 08/26/21 09:41 [place] # (Auto) Almond Blancher 08/26/21 09:41 Eos # (Auto) [place] Blancher 08/26/21 09:41 Baso # (Auto) [place] Blancher 08/26/21 09:41 Seg Neutrophils % [place]mond Blancher 08/26/21 09:41 Seg Neutrophils # Almond Blancher 08/26/21 09:41 PT 13.7 Sec. (12.2-14.9) 08/24/21 21:11 INR 0.95 (0.87-1.13) 08/24/21 21:11 APTT 29.9 Sec. (24.2-36.6) 08/24/21 21:11 Sodium 145 mmol/L (137-145) 08/26/21 04:16 Potassium 3.7 mmol/L (3.6-5.0) 08/26/21 04:16 Chloride 107.5 mmol/L (98-107) H 08/26/21 04:16 Carbon Dioxide 23 mmol/L (22-30) 08/26/21 04:16 Anion Gap 18 mmol/L 08/26/21 04:16 BUN 14 mg/dL (9-20) 08/26/21 04:16 Creatinine 1.1 mg/dL (0.8-1.3) 08/26/21 04:16 Estimated GFR > 60 ml/min 08/26/21 04:16 BUN/Creatinine Ratio 13 % 08/26/21 04:16 Glucose 86 mg/dL (75-100) 08/26/21 04:16 Hemoglobin A1c 5.5 % (4-6) 08/26/21 09:41 Calcium 9.2 mg/dL (8.4-10.2) 08/26/21 04:16 Phosphorus 2.70 mg/dL (2.5-4.5) 08/26/21 04:16 Magnesium 2.40 mg/dL (1.7-2.3) H 08/26/21 04:16 Total Bilirubin 0.80 mg/dL (0.1-1.2) 08/24/21 21:11 AST 95 units/L (5-40) H 08/24/21 21:11 ALT 98 units/L (7-56) H 08/24/21 21:11 Alkaline Phosphatase 100 units/L (35-129) 08/24/21 21:11 Troponin T 0.022 ng/mL (0.00-0.029) 08/25/21 05:51 Total Protein 6.8 g/dL (6.3-8.2) 08/24/21 21:11 Albumin 3.9 g/dL (3.9-5) 08/24/21 21:11 Albumin/Globulin Ratio 1.3 % 08/24/21 21:11 Triglycerides 123 mg/dL (2-149) 08/24/21 21:11 Cholesterol 158 mg/dL (50-199) 08/24/21 21:11 LDL Cholesterol Direct 88 mg/dL (50-130) 08/24/21 21:11 HDL Cholesterol 42 mg/dL (40-59) 08/24/21 21:11 Cholesterol/HDL Ratio 3.76 % 08/24/21 21:11 Strickland/IV: Voiding Method Toilet Active Medications - Current Medications Current Medications: Generic Name Dose Route Start Last Admin Trade Name Freq PRN Reason Stop Dose Admin Acetaminophen 650 mg 08/24/21 23:51 Acetaminophen 325 Mg Tab PO Q6H PRN Pain, Mild (1-3) Aspirin 81 mg 08/25/21 10:00 08/26/21 09:34 Aspirin 81 Mg Tab Chew PO 81 mg QDAY JULISSA Administration Atorvastatin Calcium 40 mg 08/25/21 22:00 08/25/21 22:14 Atorvastatin 40 Mg Tab PO 40 mg QHS JULISSA Administration Carvedilol 6.25 mg 08/25/21 14:00 08/26/21 09:34 Carvedilol 6.25 Mg Tab PO 6.25 mg BID JULISSA Administration Furosemide 40 mg 08/25/21 14:00 08/26/21 09:34 Furosemide 40 Mg/4 Ml Inj IV 40 mg QDAY JULISSA Administration Heparin Sodium (Porcine) 5,000 unit 08/25/21 06:00 08/26/21 13:09 Heparin 5,000 Unit/1 Ml Vial SUB-Q 5,000 unit Q8HR JULISSA Administration Hydralazine HCl 10 mg 08/24/21 23:53 08/25/21 12:47 Hydralazine 20 Mg/1 Ml Inj IV 10 mg Q6H PRN Administration Blood Pressure Lisinopril 40 mg 08/25/21 14:00 08/26/21 09:34 Lisinopril 40 Mg Tab PO 40 mg QDAY JULISSA Administration Morphine Sulfate 2 mg 08/24/21 23:51 Morphine 2 Mg/1 Ml Inj IV Q5MIN PRN Chest Pain unrelieved by NTG Nifedipine 60 mg 08/25/21 14:00 08/26/21 09:34 Nifedipine Xl 60 Mg Tab PO 60 mg QDAY JULISSA Administration Nitroglycerin 0.4 mg 08/24/21 23:51 Nitroglycerin 0.4 Mg Tab Subl SL Q5M PRN Chest Pain Ondansetron HCl 4 mg 08/24/21 23:21 Ondansetron 4 Mg/2 Ml Inj IV Q8H PRN Nausea And Vomiting Sodium Chloride 10 ml 08/24/21 23:45 08/26/21 09:35 Sodium Chloride 0.9% 10 Ml Flush Syringe IV 10 ml BID JULISSA Administration Sodium Chloride 10 ml 08/24/21 23:21 Sodium Chloride 0.9% 10 Ml Flush Syringe IV PRN PRN LINE FLUSH Spironolactone 25 mg 08/25/21 14:00 08/26/21 09:34 Spironolactone 25 Mg Tab PO 25 mg QDAY JULISSA Administration Tramadol HCl 50 mg 08/24/21 23:51 Tramadol 50 Mg Tab PO Q6H PRN Pain, Moderate (4-6)
--- NOTE | 2021-08-26 14:56 | Consultation ---
History of Present Illness Consult date: 08/26/21 Requesting physician: RAFAEL HUIZAR Reason for consult: pulmonary hypertension Past History Past Medical History: hypertension Medications and Allergies Allergies Allergy/AdvReac Type Severity Reaction Status Date / Time No Known Allergies Allergy Verified 08/24/21 21:05 Home Medications Medication Instructions Recorded Confirmed Last Taken Type No Known Home Medications [No 08/25/21 08/25/21 Unknown History Reported Home Medications] Active Meds: Active Medications Acetaminophen (Acetaminophen 325 Mg Tab) 650 mg PO Q6H PRN PRN Reason: Pain, Mild (1-3) Aspirin (Aspirin 81 Mg Tab Chew) 81 mg PO QDAY [facility] Last Admin: 08/26/21 09:34 Dose: 81 mg Documented by: Atorvastatin Calcium (Atorvastatin 40 Mg Tab) 40 mg PO QHS [facility] Last Admin: 08/25/21 22:14 Dose: 40 mg Documented by: Carvedilol (Carvedilol 6.25 Mg Tab) 6.25 mg PO BID [facility] Last Admin: 08/26/21 09:34 Dose: 6.25 mg Documented by: Furosemide (Furosemide 40 Mg/4 Ml Inj) 40 mg IV QDAY [facility] Last Admin: 08/26/21 09:34 Dose: 40 mg Documented by: Heparin Sodium (Porcine) (Heparin 5,000 Unit/1 Ml Vial) 5,000 unit SUB-Q Q8HR [facility] Last Admin: 08/26/21 13:09 Dose: 5,000 unit Documented by: Hydralazine HCl (Hydralazine 20 Mg/1 Ml Inj) 10 mg IV Q6H PRN PRN Reason: Blood Pressure Last Admin: 08/25/21 12:47 Dose: 10 mg Documented by: Lisinopril (Lisinopril 40 Mg Tab) 40 mg PO QDAY [facility] Last Admin: 08/26/21 09:34 Dose: 40 mg Documented by: Morphine Sulfate (Morphine 2 Mg/1 Ml Inj) 2 mg IV Q5MIN PRN PRN Reason: Chest Pain unrelieved by NTG Nifedipine (Nifedipine Xl 60 Mg Tab) 60 mg PO QDAY [facility] Last Admin: 08/26/21 09:34 Dose: 60 mg Documented by: Nitroglycerin (Nitroglycerin 0.4 Mg Tab Subl) 0.4 mg SL Q5M PRN PRN Reason: Chest Pain Ondansetron HCl (Ondansetron 4 Mg/2 Ml Inj) 4 mg IV Q8H PRN PRN Reason: Nausea And Vomiting Sodium Chloride (Sodium Chloride 0.9% 10 Ml Flush Syringe) 10 ml IV BID [facility] Last Admin: 08/26/21 09:35 Dose: 10 ml Documented by: Sodium Chloride (Sodium Chloride 0.9% 10 Ml Flush Syringe) 10 ml IV PRN PRN PRN Reason: LINE FLUSH Spironolactone (Spironolactone 25 Mg Tab) 25 mg PO QDAY [facility] Last Admin: 08/26/21 09:34 Dose: 25 mg Documented by: Tramadol HCl (Tramadol 50 Mg Tab) 50 mg PO Q6H PRN PRN Reason: Pain, Moderate (4-6) Physical Examination Vital signs: Vital Signs Temp Pulse Resp BP Pulse Ox 98.8 F 55 L 18 210/168 98 08/24/21 19:01 08/24/21 19:01 08/24/21 19:01 08/24/21 19:01 08/24/21 19:01 Results - Laboratory Findings CBC and BMP: 08/27/21 04:55 08/27/21 04:55 PT/INR, D-dimer PT 13.7 Sec. (12.2-14.9) 08/24/21 21:11 INR 0.95 (0.87-1.13) 08/24/21 21:11 Abnormal lab findings: Abnormal Labs 08/24/21 08/24/21 08/25/21 21:11 21:11 05:58 WBC RBC 5.41 H Hct MCV 82 L 82 L MCH 26 L 27 L Lymph % (Auto) 49.1 H [place] % (Auto) 8.6 H Potassium 3.2 L Chloride Magnesium AST 95 H ALT 98 H Troponin T 0.034 H 08/25/21 08/26/21 08/26/21 05:58 04:16 09:41 WBC 4.0 L RBC 5.69 H Hct 47.7 H D MCV MCH 27 L Lymph % (Auto) [place] % (Auto) Potassium 3.2 L Chloride 107.2 H 107.5 H Magnesium 2.40 H AST ALT Troponin T Assessment and Plan 45 y/o with pulmonary HTN, likely type 2, given systolic heart failure. Given the degree of heart failure and no structural evidence of COPD or chronic lung disease, most likely this is type 2 pulmonary HTN. No therapy for Primary Pulm HTN is indicated or type 1 disease. In this instance we need to treat his heart failure as aggressive as possible. Will sign off. Call if questions.
[2021-08-27] MEDS: HEPARIN 5,000 UNIT/1 ML VIAL SUB-Q SCH (05:11)
[2021-08-27 06:13] LABS: Hematocrit 44.3 % (35.5-45.6); Hemoglobin 14.5 gm/dl (11.8-15.2); Mean Corpuscular HGB Conc 33 % (32-34); Mean Corpuscular Volume 83 fl (84-94); Platelet Count 283 K/mm3 (140-440); Red Blood Count 5.35 M/mm3 (3.65-5.03); Red Cell Distribution Width 15.2 % (13.2-15.2)
[2021-08-27 06:22] LABS: BUN/Creatinine Ratio 13; Blood Urea Nitrogen 16 mg/dL (9-20); Calcium 8.9 mg/dL (8.4-10.2); Hemolysis Index 20
[2021-08-27] MEDS ORDERED: REGADENOSON 0.4 MG/5 ML INJ IV ONE (07:44)
[2021-08-27 09:43] LABS: Total Cells Counted 100
[2021-08-27 09:44] LABS: Platelet Estimate Consistent w Auto; RBC Morphology Normal
--- NOTE | 2021-08-27 10:40 | Electrocardiograph Report ---
[facility] Test Date: 2021-08-26 Test Time: 07:09:37 Pat Name: IMANI WU Department: Room: A460 Gender: M Worship Leader: NITA : 1975 Requested By: CONNOR HOLT Order Number: [id number] Reading MD: Bernabe Tello Measurements Intervals [place] Rate: 74 P: 35 [place]: 154 QRS: -22 QRSD: 104 T: -81 QT: 419 QTc: 464 Interpretive Statements Sinus rhythm Multiple premature complexes, vent & supraven Left atrial enlargement Left ventricular hypertrophy Anterior Q waves, possibly due to LVH Abnormal T, consider ischemia, inferior leads Compared to ECG 08/25/2021 13:33:56 Q waves now present T-wave abnormality now present Possible ischemia now present Early repolarization no longer present Electronically Signed On 08-27-2021 10:39:40 EST by Bernabe Tello
--- NOTE | 2021-08-27 10:41 | Electrocardiograph Report ---
[facility] Test Date: 2021-08-26 Test Time: 11:00:13 Pat Name: IMANI WU Department: Room: A460 1 Gender: M Row Boss: NITA : 1975 Requested By: CONNOR HOLT Order Number: [id number] Reading MD: Bernabe Tello Measurements Intervals [place] Rate: 80 P: 41 [place]: 150 QRS: -23 QRSD: 106 T: -73 QT: 488 QTc: 564 Interpretive Statements Sinus rhythm Left atrial enlargement LVH with secondary repolarization abnormality Prolonged QT interval Compared to ECG 08/26/2021 07:09:37 Early repolarization now present Prolonged QT interval now present Q waves no longer present T-wave abnormality no longer present Possible ischemia no longer present Electronically Signed On 08-27-2021 10:40:58 EST by Bernabe Tello
[2021-08-27 11:41] VITALS: BP 171/123
[2021-08-27] MEDS: NIFEdipine XL 60 MG TAB PO SCH (11:48)
[2021-08-27] MEDS: FUROSEMIDE 40 MG/4 ML INJ IV SCH (11:48)
[2021-08-27] MEDS: ASPIRIN 81 MG TAB CHEW PO SCH (11:48)
[2021-08-27] MEDS: LISINOPRIL 40 MG TAB PO SCH (11:49)
[2021-08-27] MEDS: carvediloL 6.25 MG TAB PO SCH (11:49)
[2021-08-27] MEDS: SPIRONOLACTONE 25 MG TAB PO SCH (11:49)
--- NOTE | 2021-08-27 12:52 | Nuclear Medicine Report ---
APPROVED REPORT Exam: Nuclear Stress Test Indication: Chest pain Patient Location: [facility] Room #: A460 Ht: 5 ft 9 in Wt: 197 lbs BSA: 2.05 m2 BMI: 29.08 Rhythm: NSR Stress Test Details Stress Test: Pharmacologic stress testing performed using 0.4 mg of regadenoson per 5 mL given IV over 10 seconds. Reason for pharmacologic stress test: HTN. HR Resting HR: 79 bpm Max HR Achieved: 95 bpm Max Heart Rate (APMHR): 174 bpm Target HR (85% APMHR): 147 bpm % of APMHR: 54 Recovery HR: 89 bpm HR response to stress: Normal HR response to stress BP Resting BP: 160/115 mmHg Max BP: 170/125 mmHg Recovery BP: 161/118 mmHg BP response to stress: Abnormal hypertensive response to stress. ECG Resting ECG: Sinus Rhythm Stress ECG: Sinus Tachycardia ST Change: None Arrhythmia: None Recovery ECG: Sinus Rhythm Recovery ST Change: None Recovery Arrhythmia: None Clinical Reason for Termination: Completed protocol Stress Symptoms: None Stress ECG Conclusion No chest pain, no ST changes with pharmacologic stress, myocardial perfusion images are pending. NM EXAM: Myocardial Perfusion REST/STRESS Imaging Protocol: Rest Tc-99m/Stress Tc-99m 1 day Resting Data Rest SPECT myocardial perfusion imaging was performed in supine position 45 minutes following the intravenous injection of 10 mCi of Tc-99m Myoview. Time of rest injection: 0730 Pharmacologic Stress Pharmacologic stress test was performed by injecting Regadenoson 0.4 mg IV push followed by the intravenous injection of 28 mCi of Tc-99m Myoview. Time of stress injection: 1015 Study Data TID = 1.02. Perfusion Wall Motion There is severe left ventricular systolic dysfunction with ejection fraction calculated at 16%. Nuclear Conclusion ECG Findings: negative for ischemia Clinical Findings: negative for ischemia Nuclear Findings: negative for ischemia Left Ventricular Function: abnormal Risk Study: moderate Study demonstrates a severe dilated cardiomyopathy with severe left ventricular systolic dysfunction. A small fixed basal inferolateral defect of moderate intensity appears to suggest diaphragmatic attenuation artifact, study consistent with a nonischemic cardiomyopathy. Clinical correlation is recommended. Conclusion No chest pain, no ST changes with pharmacologic stress, myocardial perfusion images are pending.
--- NOTE | 2021-08-27 12:53 | Event Note ---
Date: 08/27/21 Lexiscan thallium stress test demonstrates a severe dilated cardiomyopathy, with no ischemic or infarct defects demonstrated. Study suggested nonischemic cardiomyopathy. Patient is stable for cardiac discharge on guideline directed medical therapy as previously outlined, and outpatient cardiac follow-up visit in 7 to 10 days. We will sign off.
--- NOTE | 2021-08-27 13:38 | Discharge Summary ---
Providers - Providers Date of Admission: 08/26/21 12:36 Date of discharge: 08/27/21 Attending physician: RAFAEL HUIZAR MD 08/24/21 Consult to Cardiac Rehabilitation [CONS] Routine Reason For Exam: Phase I 08/25/21 17:45 Consult to Physician [CONS] Routine Comment: Consulting Provider: TAURUS PABON Physician Instructions: Reason For Exam: New diagnosis of moderate pulm HTN Primary care physician: [employer]NAGER Hospitalization Reason for admission: Hypertensive emergency Condition: Stable Pertinent studies: Reviewed. Procedures: Lexiscan stress test Hospital course: Patient is a 45-year-old male with past medical history of hypertension (nonadherent with medications) who presented with acute onset generalized weakness, fatigue, and significantly elevated blood pressures for approximately 48 hours was found to be secondary to hypertensive emergency complicated by NSTEMI in the setting of acute systolic heart failure. Cardiology was consulted. TTE revealed EF 25-30% with a moderately dilated LV and severely decreased LV function with moderate concentric LV hypertrophy. Right ventricle was found to be mild to moderately dilated, and the right ventricle was mildly hypokinetic. The left atrium is severely dilated, and the right atrium is moderately dilated. There is mild to moderate tricuspid regurgitation with moderate to severe pulmonary hypertension. The RVSP is 55-60 mmHg. The patient will continue medical management per cardiology recommendations. The patient underwent a Lexiscan that was negative for ischemic etiology; therefore, the patient has nonischemic cardiomyopathy likely secondary to longstanding uncontrolled hypertension. The patient was evaluated by pulmonology suggest the pulmonary hypertension is secondary to left heart failure (type II pulmonary hypertension). The patient will follow with cardiology in clinic. The patient will be referred to a PCP for additional management. Patient is medically cleared for discharge, and the patient expresses understanding. Disposition: HOME / SELF CARE / HOMELESS Final Discharge Diagnosis (Prints w/discharge instructions): Hypertensive emergency, NSTEMI, acute on chronic systolic heart failure, nonischemic cardiomyopathy, moderate pulmonary hypertension Time spent for discharge: 45 minutes Core Measure Documentation - Palliative Care Palliative Care/ Comfort Measures: Not Applicable - Core Measures Any of the following diagnoses?: acute DC, heart failure - VTE Discharge Requirements Deep Vein Thrombosis/Pulmonary Embolism Present on Admission: No Has pt received <5 days of overlap therapy or INR<2.0: No (Not indicated) Anticoagulant overlap therapy prescribed at discharge: No Contraindication No Overlap Therapy order at DC: Not Indicated - Acute DC Discharge Requirements Aspirin at discharge: Yes SRIDHAR/ARB for LVSD if EF <40%: Yes Beta harry at discharge: Yes Statin for LDL = or >100 mg/dl on DC: Yes - Heart Failure Discharge Requirements SRIDHAR/ARB for LVSD if EF <40%: Yes Beta harry at discharge: Yes - Stroke Discharge Requirements Statin for LDL = or >70 mg/dl on DC: Yes Anticoag for atrial fib/atrial flutter: Not Applicable Reason for no anticoag for AF/F on DC: Not Indicated Antithrombotic for ischemic stroke: No Reason for no antithrombotic on DC: Not Indicated Exam - Constitutional Vitals: Temp Pulse Resp BP Pulse Ox 98.2 F 69 18 171/123 99 08/27/21 11:35 08/27/21 12:00 08/27/21 11:35 08/27/21 11:35 08/27/21 11:35 General appearance: Present: no acute distress, well-nourished - EENT Eyes: Present: PERRL, EOM intact ENT: hearing intact, clear oral mucosa, dentition normal - Neck Neck: Present: supple, normal ROM - Respiratory Respiratory effort: normal Respiratory: bilateral: CTA - Cardiovascular Rhythm: regular Heart Sounds: Present: S1 & S2 - Extremities Extremities: no ischemia, pulses intact, pulses symmetrical, No edema, normal temperature, normal color Peripheral Pulses: within normal limits - Abdominal General gastrointestinal: Present: soft, non-tender, non-distended, normal bowel sounds Male genitourinary: Present: deferred - Rectal Rectal Exam: deferred - Integumentary Integumentary: Present: clear, warm, dry - Musculoskeletal Musculoskeletal: strength equal bilaterally - Psychiatric Psychiatric: appropriate mood/affect, intact judgment & insight, memory intact, cooperative - Neurologic Neurologic: CNII-XII intact, moves all extremities Plan Activity: no restrictions Diet: low salt, other (Consume no more than 2 L of fluid per day.) Special Instructions: restrict fluid intake to (2 L/day.) Care Plan Goals: Patient safe for discharge. Assessment: Patient was admitted for hypertensive urgency in the setting of acute on chronic systolic heart failure (nonischemic). Cardiology was consulted, and recommended medical management. Lexiscan was performed that was negative for ischemic etiology. Patient safe for discharge. Follow up with: PRIMARY CARE, [Primary Care Provider] - 7 Days LISA KLEIN MD [Staff Physician] - 14 Days (Post hospitalization follow-up for newly diagnosed nonischemic cardiomyopathy.) REINIER CABAN MD [Staff Physician] - 7 Days (Post hospitalization for acute on chronic systolic heart failure (nonischemic). Establishing PCP.) Prescriptions: AtorvaSTATin [Lipitor] 40 mg PO QHS #30 tablet Spironolactone [Aldactone] 25 mg PO QDAY #30 tablet Aspirin [Aspirin BABY CHEW TAB] 81 mg PO QDAY #30 tab.chew carvediloL [Coreg] 6.25 mg PO BID #60 tablet Nitroglycerin [Nitrostat] 0.4 mg SL Q5M PRN #30 tablet PRN Reason: Chest Pain NIFEdipine XL [Procardia Xl] 60 mg PO QDAY #30 tablet lisinopriL [Zestril TAB] 40 mg PO QDAY #30 tablet
== END 2021-08-27 14:30 | disposition home or self-care (01) | DRG 280 ==
LOC: ED 18:57 → 4A 23:51 → OBSVTOIN 08-26 12:36
PROVIDERS: ADMIT Hospitalist; ATTEND Student in an Organized Health Care Education/Training Program
DX: I21.4 Non-ST elevation (NSTEMI) myocardial infarction (principal); I50.23 Acute on chronic systolic (congestive) heart failure; I16.1 Hypertensive emergency; I42.8 Other cardiomyopathies; E87.6 Hypokalemia; I11.0 Hypertensive heart disease with heart failure; I27.20 Pulmonary hypertension, unspecified; Z20.822 Contact with and (suspected) exposure to COVID-19
CPT/HCPCS: 36415; 71046; 78452; 80048; 80053; 80061; 83036; 83735; 84100; 84484; 85007; 85025; 85610; 85730; 93005; 93017; 93306; G0378; Q0162; A9502; J0360; J1644; J1940; J2785; J3480; J7030